=== PATIENT | female | born 1960 | race Caucasian/White ===

== ENCOUNTER → 2017-06-14 | Day surgery (SDC) | payer OTHER ==
[2007-12-28 14:31] VITALS: BP 108/72
[~2017-06-14] MED LIST: ALPRAZOLAM0.25 M1 PO; CHLORPHENIRAMINE4 M1 PO; CYTOMEL5 MCG PO; ESTRACE42.5 GM VG; MAGNESIUM400 M1 PO; MELATONIN10 M2 PO; NASACORT16.9 ML NASB; SOOLANTRA30 GM TOP; ST. JOHN'S WOR300 MG PO; SYNTHROID100 MCG PO; VITAMIN E100 UNI2 PO
--- NOTE | 2017-06-14 08:29 | Operative Report ---
Operative/Inv Procedure Report Surgery Date: 06/14/17 Name of Procedure: left extracorporeal shockwave lithotripsy Pre-Operative Diagnosis: left renal stones Post-Operative Diagnosis: same Estimated Blood Loss: scant Surgeon/Scientific Systems Analyst: Lizeth Monroe MD Anesthesia: local monitored anesthesi Complications: none Condition: stable Operative Indication: left renal stones Operative/Procedure Note Note: 56yo female with a hx of bilateral kidney stones that were recently discovered. Given the size of the stones on the right side, she opted to have them treated with ESWL. She did well on th right side with only tiny stones remaining. She wanted to move forward and have the left side treated. Discussed the risks, benefits and alternatives of the procedure. Answered all questions. Patient was taken to the opertaing room and placed in the supine position to optimally treat the right side. Time out was performed. The ESWL treatment was started once the two stones were easily identified on the left side. A total of 2500 shocks to the left 5mm and 4mm stones with US guidance. At a power of 1-11 for 250 shocks, 12-19 for 250shocks, 18 for 2000 shocks. Patient tolerated the procedure well. The stone was visibly changed at the end of the 2500 shocks. She was transferred to same day surgery. Findings: left renal stones x2 Discharge Disposition: Same Day Admissions
== END ==
LOC: STS 03:27
DX: N20.0 Calculus of kidney (principal); Z87.442 Personal history of urinary calculi; R32 Unspecified urinary incontinence; N39.0 Urinary tract infection, site not specified; E03.9 Hypothyroidism, unspecified
CPT/HCPCS: J0690; J2250